=== PATIENT | female | born 1965 | race Caucasian/White ===

== ENCOUNTER 2016-08-03 07:47 | Emergency (ER) | payer MEDICAID ==
[~2016-08-03] VITALS: Ht 160 cm; Wt 59.9 kg
[~2016-08-03 07:47] MED LIST: AMLODIPINE5 M1 PO; ASPIR 8181 MG PO; ATORVASTATIN CA80 MG PO; CARVEDILOL3.125 M1 PO; CLOPIDOGREL75 M2 PO; ESTRACE 2MG. TAB2 MG PO; ETODOLAC400 MG PO; FLUOXETINE HYDR20 MG PO; HYDROCHLOROTHIA1 TAB PO; LEVOTHYROXIN0.025 M1 PO; LISINOPRIL/HCTZ1 TA3 PO; LISINOPRIL/HCTZ1 TAB PO; METHOCARBAMOL500 M1 PO; NABUMETONE750 MG OR; NICOTINE PATCH;14 MG TD; PREMARIN 0.9MG0.9 MG PO; SEPTRA DS 800 M1 TAB PO; TRAMADOL 50MG T1 PAK PO; TRAMADOL50 M1 PO
--- NOTE | 2016-08-03 08:16 | Emergency Room Report ---
History of Present Illness Time Seen by MD Sheets Presenting Problem in Triage Pt arrived:Walked Presenting Problem:PT STATES SHE WASNT FEELING WELL THIS MORNING AND TOOK HER BP AND WAS 176/106, PT HAS TAKEN 20 MG LISINOPRIL PO THIS MORNING. PT STATES SHE HAS CONSTANT LEFT ARM PAIN. 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 N Clinical Suspician of Infection? N Mental Status: 1 - Regular (Normal Baseline) Sepsis Risk:Low Sepsis Risk Have you (or family members/close friends) recently traveled outside the [place]? N If Yes, where/when: Have you had exposure to infectious disease within the past month? N TB? Other? Specify: Source patient, RN notes reviewed, family, RN/MD Exam Limitations no limitations Comment This is a 51-year-old female arriving to the emergency room with concerns related to her blood pressure being elevated, also LEFT arm pain. She is currently on lisinopril 20 mg daily. Patient denies any recent travel or exposure to sick contacts. Patient has not been checking her blood pressure prior to this episode, so she does not know if her blood pressure has been well controlled or not. ALLERGIES Coded Allergies: STRAWBERRIES (FOOD) (Intermediate, I-HIVES 08/08/15) Home Medications Active Scripts LISINOPRIL/HYDROCHLOROTHIAZIDE (Lisinopril-Hctz 10-12.5 MG Tab) 1 TAB PO BID #28 TAB Prov: 06/16/16 Aspirin (Aspirin EC 81MG Tab) 81 MG PO DAILY #30 Prov: 12/05/15 Reported Medications CLOPIDOGREL BISULFATE (Clopidogrel) 75 MG PO DAILY #30 LISINOPRIL/HYDROCHLOROTHIAZIDE (Lisinopril-Hctz 10-12.5 MG Tab) 1 TAB PO DAILY #30 ESTROGENS, CONJUGATED (Premarin 0.9MG. Tablet) 0.9 MG PO DAILY #30 FLUOXETINE HCL (Fluoxetine Hydrochloride) 20 MG PO DAILY #30 Atorvastatin Calcium 80 MG PO NIGHT ONLY #30 TRAMADOL THP (Tramadol 50MG Tablet Take Home Pack (10)) 1 POW PO DAILY #15 Nabumetone 750 MG OR BID #60 History Medical History General CAD? No Angina: Yes [place]: Yes Hypertension? Yes Hyperlipidemia? No CHF? No DVT? No PE? No COPD? No Asthma? No Anemia? Yes GERD? No Gastric ulcers? No GI Bleed? No Hernia? No Thyroid Problems? Yes Hypothyroidism? Yes CVA? No Seizures? No Diabetes? No Insulin Dependent: No Insulin Pump: No Home FSBS? No Renal Insuffiency? No End Stage Renal Disease? No UTI? No Stones? No BPH? No GB Disease: No Nephritic Syndrome? No Asplenia? No Hepatitis? No Sickle Cell Disease? No Arthritis? Yes Migraines? No Cataracts? No Glaucoma? Yes MRSA? No HIV? No TB? No Anxiety? Yes Depression? Yes Cancer? 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 N/A Family History Family Hx Diabetes Yes CAD Yes Hypertension Yes Hyperlipidemia Yes Cancer No TB No Social History Smoking Hx Smoker: Current Every Day Smoker Tobacco: Yes Type Cigarettes Packs/day 1 1/2 - 2 Packs Alcohol Alcohol: Yes Review of Systems All Other Systems Reviewed and Negative Cardiovascular chest pain Psychiatric/Neurological other Physical Exam Vital Signs Vital Signs Date Time Temp Pulse Resp B/P Pulse O2 O2 Flow FiO2 Ox Delivery Rate 08/03 1007 98.2 75 18 135/79 97 08/03 1006 75 18 135/79 97 08/03 0933 75 18 135/80 97 08/03 0857 98.2 70 18 156/91 99 08/03 0752 98.3 80 18 165/96 99 General Appearance normal appearance, WD/WN, no apparent distress Neck normal inspection, non-tender, supple, full range of motion Respiratory Status Yes: trachea midline, chest symmetrical, non tender chest. No: respiratory distress. Lung Sounds bilateral: normal breath sounds, lungs clear. Cardiovascular normal exam, regular rate/rhythm, no peripheral edema, no gallop, no JVD, no murmur, no rub, normal peripheral pulses Gastrointestinal normal bowel sounds, normal exam, non tender, soft, no organomegaly Extremities normal range of motion, normal inspection, LEFT shoulder nontender, range of motion limited due to pain, especially with internal rotation and lateral abduction. Neurologic alert, [employer] II-XII nml as tested, normal exam, oriented x 3 Mental status normal mood/affect Skin intact, normal color, warm/dry Medical Decision Making LABS/Meds/Orders Pt receiving controlled substance in ED? No Comment Patient's symptoms appeared to be managed by movement in her LEFT shoulder, and LEFT upper extended period patient appears medically stable, minimally symptomatic. Advised patient results obtained and need for further workup, per discharge instructions. If unable to see her doctor in 2 days and not better, patient advised to return promptly to this, same, emergency room, for reevaluation. 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 of ischemic chgs, no ectopy, normal QRS, normal [place], no EKG for comparison, non-spec. ST/Twave chgs, ST elevation, ST depression, LBBB, RBBB, ectopy, abnormal Q waves XRAY/CT/US XRAY/CT/US XRAY chest XR interpretation by reviewed by me Xray Results no infiltrates, normal heart size, normal lung inflation isabelle Departure Departure Time of Disposition 0818 Disposition DC Home or Self Care(routine) Clinical Impression Primary Impression: Hypertension Qualifiers: Hypertension type: essential hypertension Qualified Code: I10 - Essential (primary) hypertension Secondary Impressions: Left shoulder pain Qualifiers: Chronicity: acute Qualified Code: M25.512 - Pain in left shoulder Condition STABLE Referrals Tricia HOPE,Derik Zaman: 2 Weeks-Call Office Patient Instructions DI for Shoulder Pain, Treatments for High Blood Pressure: More Than Just Taking a Pill Additional Instructions Please increase your blood pressure medication from Lisinopril/HCZT 10/12.5mg 1pill 2x/day to Lisinopril/HCZT 20/25mg 1pill 2x/day. Discharge Counseling Counseled pt/family regarding diagnosis, test results, medications/RX, home care, follow up needs Comment Please increase your blood pressure medication from Lisinopril/HCZT 10/12.5mg 1pill 2x/day to Lisinopril/HCZT 20/25mg 1pill 2x/day. Prescriptions Current Visit Scripts LISINOPRIL/HYDROCHLOROTHIAZIDE (Lisinopril-Hctz 20-25 MG Tab) 1 TAB PO BID #60 TAB ED Critical Care Critical Care No at 7851
--- NOTE | 2016-08-03 08:16 | Emergency Room Report ---
History of Present Illness Time Seen by MD Sheets Presenting Problem in Triage Pt arrived:Walked Presenting Problem:PT STATES SHE WASNT FEELING WELL THIS MORNING AND TOOK HER BP AND WAS 176/106, PT HAS TAKEN 20 MG LISINOPRIL PO THIS MORNING. PT STATES SHE HAS CONSTANT LEFT ARM PAIN. 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 N Clinical Suspician of Infection? N Mental Status: 1 - Regular (Normal Baseline) Sepsis Risk:Low Sepsis Risk Have you (or family members/close friends) recently traveled outside the [place]? N If Yes, where/when: Have you had exposure to infectious disease within the past month? N TB? Other? Specify: Source patient, RN notes reviewed, family, RN/MD Exam Limitations no limitations Comment This is a 51-year-old female arriving to the emergency room with concerns related to her blood pressure being elevated, also LEFT arm pain. She is currently on lisinopril 20 mg daily. Patient denies any recent travel or exposure to sick contacts. Patient has not been checking her blood pressure prior to this episode, so she does not know if her blood pressure has been well controlled or not. ALLERGIES Coded Allergies: STRAWBERRIES (FOOD) (Intermediate, I-HIVES 08/08/15) Home Medications Active Scripts LISINOPRIL/HYDROCHLOROTHIAZIDE (Lisinopril-Hctz 10-12.5 MG Tab) 1 TAB PO BID #28 TAB Prov: 06/16/16 Aspirin (Aspirin EC 81MG Tab) 81 MG PO DAILY #30 Prov: 12/05/15 Reported Medications CLOPIDOGREL BISULFATE (Clopidogrel) 75 MG PO DAILY #30 LISINOPRIL/HYDROCHLOROTHIAZIDE (Lisinopril-Hctz 10-12.5 MG Tab) 1 TAB PO DAILY #30 ESTROGENS, CONJUGATED (Premarin 0.9MG. Tablet) 0.9 MG PO DAILY #30 FLUOXETINE HCL (Fluoxetine Hydrochloride) 20 MG PO DAILY #30 Atorvastatin Calcium 80 MG PO NIGHT ONLY #30 TRAMADOL THP (Tramadol 50MG Tablet Take Home Pack (10)) 1 POW PO DAILY #15 Nabumetone 750 MG OR BID #60 History Medical History General CAD? No Angina: Yes [place]: Yes Hypertension? Yes Hyperlipidemia? No CHF? No DVT? No PE? No COPD? No Asthma? No Anemia? Yes GERD? No Gastric ulcers? No GI Bleed? No Hernia? No Thyroid Problems? Yes Hypothyroidism? Yes CVA? No Seizures? No Diabetes? No Insulin Dependent: No Insulin Pump: No Home FSBS? No Renal Insuffiency? No End Stage Renal Disease? No UTI? No Stones? No BPH? No GB Disease: No Nephritic Syndrome? No Asplenia? No Hepatitis? No Sickle Cell Disease? No Arthritis? Yes Migraines? No Cataracts? No Glaucoma? Yes MRSA? No HIV? No TB? No Anxiety? Yes Depression? Yes Cancer? 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 Family History Family Hx Diabetes Yes CAD Yes Hypertension Yes Hyperlipidemia Yes Cancer No TB No Social History Smoking Hx Smoker: Current Every Day Smoker Tobacco: Yes Type Cigarettes Packs/day 1 1/2 - 2 Packs Alcohol Alcohol: Yes Review of Systems All Other Systems Reviewed and Negative Cardiovascular chest pain Psychiatric/Neurological other Physical Exam Vital Signs Vital Signs Date Time Temp Pulse Resp B/P Pulse O2 O2 Flow FiO2 Ox Delivery Rate 08/03 1007 98.2 75 18 135/79 97 08/03 1006 75 18 135/79 97 08/03 0933 75 18 135/80 97 08/03 0857 98.2 70 18 156/91 99 08/03 0752 98.3 80 18 165/96 99 General Appearance normal appearance, WD/WN, no apparent distress Neck normal inspection, non-tender, supple, full range of motion Respiratory Status Yes: trachea midline, chest symmetrical, non tender chest. No: respiratory distress. Lung Sounds bilateral: normal breath sounds, lungs clear. Cardiovascular normal exam, regular rate/rhythm, no peripheral edema, no gallop, no JVD, no murmur, no rub, normal peripheral pulses Gastrointestinal normal bowel sounds, normal exam, non tender, soft, no organomegaly Extremities normal range of motion, normal inspection, LEFT shoulder nontender, range of motion limited due to pain, especially with internal rotation and lateral abduction. 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 No Comment Patient's symptoms appeared to be managed by movement in her LEFT shoulder, and LEFT upper extended period patient appears medically stable, minimally symptomatic. Advised patient results obtained and need for further workup, per discharge instructions. If unable to see her doctor in 2 days and not better, patient advised to return promptly to this, same, emergency room, for reevaluation. 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 of ischemic chgs, no ectopy, normal QRS, normal [place], no EKG for comparison, non-spec. ST/Twave chgs, ST elevation, ST depression, LBBB, RBBB, ectopy, abnormal Q waves XRAY/CT/US XRAY/CT/US XRAY chest XR interpretation by reviewed by me Xray Results no infiltrates, normal heart size, normal lung inflation isabelle Departure Departure Time of Disposition 0818 Disposition DC Home or Self Care(routine) Clinical Impression Primary Impression: Hypertension Qualifiers: Hypertension type: essential hypertension Qualified Code: I10 - Essential (primary) hypertension Secondary Impressions: Left shoulder pain Qualifiers: Chronicity: acute Qualified Code: M25.512 - Pain in left shoulder Condition STABLE Referrals Tricia HOPE,Derik Zaman: 2 Weeks-Call Office Patient Instructions DI for Shoulder Pain, Treatments for High Blood Pressure: More Than Just Taking a Pill Additional Instructions Please increase your blood pressure medication from Lisinopril/HCZT 10/12.5mg 1pill 2x/day to Lisinopril/HCZT 20/25mg 1pill 2x/day. Discharge Counseling Counseled pt/family regarding diagnosis, test results, medications/RX, home care, follow up needs Comment Please increase your blood pressure medication from Lisinopril/HCZT 10/12.5mg 1pill 2x/day to Lisinopril/HCZT 20/25mg 1pill 2x/day. Prescriptions Current Visit Scripts LISINOPRIL/HYDROCHLOROTHIAZIDE (Lisinopril-Hctz 20-25 MG Tab) 1 TAB PO BID #60 TAB ED Critical Care Critical Care No at 2710
[2016-08-03] MEDS ORDERED: HYDROCHLOROTHIA1 TA2 PO (09:56)
[2016-08-03 10:07] VITALS: BP 135/79
== END 2016-08-03 10:09 | disposition home or self-care (01) ==
LOC: ER 07:47
DX: M25.512 Pain in left shoulder (principal); I10 Essential (primary) hypertension; F41.8 Other specified anxiety disorders; Z72.0 Tobacco use

== ENCOUNTER → 2016-09-21 | Outpatient (CLI) | payer MEDICAID ==
[~2016-09-21] MED LIST changes: +HYDROCHLOROTHIA1 TA2 PO
[2016-09-21 08:04] LABS: BUN 8 mg/dL (7-18)
[2016-09-21 08:05] LABS: GFR (ESTIMATED) 105 ML/MIN (59-)
== END ==
LOC: LAB 07:03
PROVIDERS: Internal Medicine Cardiovascular Disease
DX: I25.10 Atherosclerotic heart disease of native coronary artery without angina pectoris (principal); I10 Essential (primary) hypertension